=== PATIENT | female | born 1995 | race Two or more races ===

== ENCOUNTER 2016-09-30 22:31 | Emergency (ER) | payer OTHER ==
[2016-09-30 22:52] VITALS: BP 126/55; PULSE 65; TEMP 98.6; BMI 24.7
--- NOTE | 2016-10-01 00:30 | PDOC ---
History of Present Illness - General History Source: Patient Exam Limitations: No Limitations - History of Present Illness Initial Comments: 10/01/16 00:37 Patient is a 21 year old female with no significant past medical history who presents to the ED with left leg swelling s/p twisted ankle 4 days ago. Patient notes that she was stepping off the bed and her foot was asleep so she landed twisting it. She notes that the swelling got worse since 4 days ago. She reports that she was using prema wrap and advil for the pain with minimal relief. <Clara John - Last Filed: 10/01/16 00:37> - General History Source: Patient <Des Padilla - Last Filed: 10/01/16 00:49> - General Chief Complaint: Injury Stated Complaint: L LEG INJURY Time Seen by Provider: 10/01/16 00:29 Past History <Clara John - Last Filed: 10/01/16 00:37> - Past Medical History Other medical history: denies - Immunization History Immunization Up to Date: Yes - Psycho/Social/Smoking Cessation Hx Anxiety: No Suicidal Ideation: No Smoking History: Never smoked Hx Alcohol Use: No Drug/Substance Use Hx: No Substance Use Type: None <Des Padilla - Last Filed: 10/01/16 00:49> - Past Medical History Allergies/Adverse Reactions: Allergies Allergy/AdvReac Type Severity Reaction Status Date / Time No Known Allergies Allergy Verified 09/30/16 22:49 Home Medications: Ambulatory Orders NK [No Known Home Medication] 05/01/16 Review of Systems - Review of Systems Able to Perform ROS?: Yes Comments:: 10/01/16 00:37 CONSTITUTIONAL: Absent: fever, chills, diaphoresis, generalized weakness, malaise, loss of appetite HEENT: Absent: rhinorrhea, nasal congestion, throat pain, throat swelling, difficulty swallowing, mouth swelling, ear pain, eye pain, visual Changes CARDIOVASCULAR: Absent: chest pain, syncope, palpitations, irregular heart rate, lightheadedness , peripheral edema RESPIRATORY: Absent: cough, shortness of breath, dyspnea with exertion, orthopnea, wheezing, stridor, hemoptysis GASTROINTESTINAL: Absent: abdominal pain, abdominal distension, nausea, vomiting, diarrhea, constipation, melena, hematochezia GENITOURINARY: Absent: dysuria, frequency, urgency, hesitancy, hematuria, flank pain, genital pain MUSCULOSKELETAL: Present: left lower extremity swelling Absent: myalgia, arthralgia, joint swelling SKIN: Absent: rash, itching, pallor HEMATOLOGIC/IMMUNOLOGIC: Absent: easy bleeding, easy bruising, lymphadenopathy, frequent infections ENDOCRINE: Absent: unexplained weight gain, unexplained weight loss, heat intolerance, cold intolerance NEUROLOGIC: Absent: headache, focal weakness or paresthesias, dizziness, unsteady gait, seizure, mental status changes, bladder or bowel incontinence PSYCHIATRIC: Absent: anxiety, depression, suicidal or homicidal ideation, hallucinations. <Clara John - Last Filed: 10/01/16 00:37> *Physical Exam - Vital Signs Last Vital Signs Temp Pulse Resp BP Pulse Ox 98.6 F 65 18 126/55 98 09/30/16 22:50 09/30/16 22:50 09/30/16 22:50 09/30/16 22:50 09/30/16 22:50 - Physical Exam Comments: 10/01/16 00:38 GENERAL: Well developed, well nourished. Awake and alert. In no acute distress. HEENT: Normocephalic, atraumatic. PERRLA, EOMI. No conjunctival pallor. Sclerae are non -icteric. Moist mucous membranes. Oropharynx is clear. NECK: Supple. Full ROM. No JVD. Carotid pulses 2+ and symmetric, without bruits. No thyromegaly. No lymphadenopathy. CARDIOVASCULAR: Regular rate and rhythm. No murmurs, rubs, or gallops. Distal pulses are 2+ and symmetric. PULMONARY: No evidence of respiratory distress. Lungs clear to auscultation bilaterally. No wheezing, rales or rhonchi. ABDOMINAL: Soft. Non-tender. Non-distended. No rebound or guarding. No organomegaly. Normoactive bowel sounds. MUSCULOSKELETAL Normal range of motion at all joints. No bony deformities or tenderness. No CVA tenderness. EXTREMITIES: +Swelling and ecchymosis from ankle to knee. No bony deformity No cyanosis. No clubbing. No calf tenderness. SKIN: Warm and dry. Normal capillary refill. No rashes. No jaundice. NEUROLOGICAL: Alert, awake, appropriate. Cranial nerves 2-12 intact. No deficits to light touch and temperature in face, upper extremities and lower extremities. No motor deficits in the in face, upper extremities and lower extremities. Normoreflexic in the upper and lower extremities. Normal speech. PSYCHIATRIC: Cooperative. Good eye contact. Appropriate mood and affect. <Clara John - Last Filed: 10/01/16 00:37> - Vital Signs Last Vital Signs Temp Pulse Resp BP Pulse Ox 98.6 F 65 18 126/55 98 09/30/16 22:50 09/30/16 22:50 09/30/16 22:50 09/30/16 22:50 09/30/16 22:50 <Des Padilla - Last Filed: 10/01/16 00:49> ED Treatment Course - RADIOLOGY Radiology Studies Ordered: Category Date Time Status ANKLE & FOOT-LEFT* [RAD] Stat Radiology 09/30/16 23:50 Taken <Des Padilla - Last Filed: 10/01/16 00:49> Medical Decision Making - Medical Decision Making 10/01/16 00:32 Dr. Padilla: The scribe's documentation has been prepared under my direction and personally reviewed by me in its entirery. I confirm that the note above accurately reflects all work, treatment, procedures, and medical decision making performed by me. Pt with swelling and ecchymosis to left ankle/ foot s/p ankle sprain 4 days ago. Xray is negative for fx or dislocation. Pt will be discharge and follow up with ortho as needed <Des Padilla - Last Filed: 10/01/16 00:49> *DC/Admit/Observation/Transfer - Attestations Scribe Attestion: 10/01/16 00:38 Documentation prepared by GERMAN Bermeo, acting as medical hospital sales for Des Padilla DO. <Clara John - Last Filed: 10/01/16 00:37> - Discharge Dispostion Admit: No <Des Padilla - Last Filed: 10/01/16 00:49> Diagnosis at time of Disposition: Left ankle sprain Qualifiers: Encounter type: initial encounter Involved ligament of ankle: unspecified ligament Qualified Code(s): S93.402A - Sprain of unspecified ligament of left ankle, initial encounter - Discharge Dispostion Disposition: HOME Condition at time of disposition: Stable - Referrals Referrals: Rex Burns MD [Primary Care Provider] - Boni Ledesma MD [Staff Physician] - - Patient Instructions Printed Discharge Instructions: DI for Ankle Sprain Additional Instructions: Rest, ice, elevate foot as much as possible. Take Advil for pain as needed. Follow up with your doctor or the doctor provided as needed. - Post Discharge Activity Work/School Note: Back to Work
[2016-10-01] MEDS ORDERED: IBUPROFEN 600 MG TABLET (FP) PO ONE (00:54)
== END 2016-10-01 00:58 | disposition home or self-care (01) ==
LOC: JER 22:31
DX: S93.402A Sprain of unspecified ligament of left ankle, initial encounter (principal); X58.XXXA Exposure to other specified factors, initial encounter; Y93.9 Activity, unspecified; Y92.9 Unspecified place or not applicable
CPT/HCPCS: 73610-TC-LT; 73630-TC-LT; 99281-25

== ENCOUNTER 2017-07-01 23:48 | Emergency (ER) | payer OTHER ==
[2017-07-01 23:59] VITALS: BP 126/54; PULSE 64; TEMP 98.5; BMI 28.1
[2017-07-02] MEDS ORDERED: TETANUS AND DIPHTHERIA TOXOID 0.5 ML DISP.SYRIN IM ONE (00:22)
[2017-07-02] MEDS ORDERED: CEPHALEXIN MONOHYDRATE 500 MG CAPSULE (UD) PO ONE (00:22)
--- NOTE | 2017-07-02 00:22 | PDOC ---
History of Present Illness - General History Source: Patient <Des Padilla - Last Filed: 07/02/17 00:25> - History of Present Illness Initial Comments: 07/02/17 00:53 Patient is a 21 year old female with no significant past medical history who presents to the ED s/p finger laceration that occured 2 days ago. Patient reports injuring her left index finger 2 days go with a piece of glass accidentally causing immediate pain. She reports coming into the ED for evaluation of her laceration after her finger began to become more swollen with time. Denies fevers, chills. Denies nausea, vomiting. Denies contact with sick individuals. Denies any other symptoms. Allergies: None Social history: No smoking. No alcohol. No illicit drugs. Surgical history: None PMD: Dr. Carlton Shah. <Danilo Chamorro - Last Filed: 07/02/17 01:07> - General Chief Complaint: Injury Stated Complaint: FINGER INJURY Time Seen by Provider: 07/02/17 00:12 Past History - Past Medical History COPD: No - Immunization History Immunization Up to Date: Yes - Suicide/Smoking/Psychosocial Hx Smoking History: Never smoked Hx Alcohol Use: No Drug/Substance Use Hx: No Substance Use Type: None <ValerieDes - Last Filed: 07/02/17 00:25> <Danilo Chamorro - Last Filed: 07/02/17 01:07> - Past Medical History Allergies/Adverse Reactions: Allergies Allergy/AdvReac Type Severity Reaction Status Date / Time No Known Allergies Allergy Verified 07/01/17 23:57 Home Medications: Ambulatory Orders Cephalexin Monohydrate [Keflex -] 500 mg PO BID #20 capsule 07/02/17 Ibuprofen [Motrin] 600 mg PO TID #30 tablet 07/02/17 Review of Systems - Review of Systems Able to Perform ROS?: Yes Comments:: 07/02/17 00:53 CONSTITUTIONAL: Absent: fever, no chills, no fatigue EYES: Absent: visual changes ENT: Absent: ear pain, no sore throat CARDIOVASCULAR: Absent: chest pain, no palpitations RESPIRATORY: Absent: cough, no SOB GI: Absent: abdominal pain, no nausea, no vomiting, no constipation, no diarrhea GENITOURINARY: Absent: dysuria, no frequency, no hematuria MUSCULOSKELETAL: +Left index finger laceration. Absent: back pain, no arthralgia, no myalgia SKIN: Absent: rash All Other Systems: Reviewed and Negative <Danilo Chamorro - Last Filed: 07/02/17 01:07> *Physical Exam - Vital Signs Last Vital Signs Temp Pulse Resp BP Pulse Ox 98.5 F 64 16 126/54 99 07/01/17 23:57 07/01/17 23:57 07/01/17 23:57 07/01/17 23:57 07/01/17 23:57 <Des Padilla - Last Filed: 07/02/17 00:25> - Vital Signs Last Vital Signs Temp Pulse Resp BP Pulse Ox 98.5 F 64 16 126/54 99 07/01/17 23:57 07/01/17 23:57 07/01/17 23:57 07/01/17 23:57 07/01/17 23:57 - Physical Exam Comments: 07/02/17 00:54 GENERAL: Well-appearing, well-nourished. No apparent distress. HEENT: Normocephalic, atraumatic. PERRL, EOM intact. CARDIOVASCULAR: Normal S1, S2. Regular rate and rhythm. PULMONARY: Clear to auscultation bilaterally. ABDOMEN: Soft, non-distended, non-tender. EXTREMITIES: +Painfully swollen. +Laceration on bowel aspect of left index finger. +Tender at laceration site. +Cellulitic +Decreased ROM secondary to swelling. SKIN: Warm, dry. No rash NEUROLOGICAL: No focal neurological deficits. <Danilo Chamorro - Last Filed: 07/02/17 01:07> ED Treatment Course - Medications Given in the ED: ED Medications Discontinued Medications Generic Name Dose Route Start Last Admin Trade Name Freq PRN Reason Stop Dose Admin Cephalexin HCl 500 mg 07/02/17 00:22 07/02/17 00:27 Keflex - PO 07/02/17 00:23 500 mg ONCE ONE Administration Ibuprofen 600 mg 07/02/17 00:23 07/02/17 00:27 Motrin - PO 07/02/17 00:24 600 mg ONCE STA Administration Tetanus/Diphtheria Toxoids Adsorbed 0.5 ml 07/02/17 00:22 07/02/17 00:26 Decavac IM 07/02/17 00:23 0.5 ml .ONCE ONE Administration <Danilo Chamorro - Last Filed: 07/02/17 01:07> Medical Decision Making - Medical Decision Making 07/02/17 00:26 Dr. Padilla: The scribe's documentation has been prepared under my direction and personally reviewed by me in its entirery. I confirm that the note above accurately reflects all work, treatment, procedures, and medical decision making performed by me. <Des Padilla - Last Filed: 07/02/17 00:25> *DC/Admit/Observation/Transfer - Discharge Dispostion Admit: No <Des Padilla - Last Filed: 07/02/17 00:25> - Attestations Scribe Attestion: 07/02/17 00:54 Documentation prepared by Danilo Chamorro, acting as medical specialist for Des Padilla MD/DO. <Danilo Chamorro - Last Filed: 07/02/17 01:07> Diagnosis at time of Disposition: Wound infection - Discharge Dispostion Disposition: HOME Condition at time of disposition: Stable - Prescriptions Prescriptions: Cephalexin Monohydrate [Keflex -] 500 mg PO BID #20 capsule Ibuprofen [Motrin] 600 mg PO TID #30 tablet - Referrals Referrals: Carlton Shah MD, MD [Primary Care Provider] - - Patient Instructions Printed Discharge Instructions: DI for Wound Infection Additional Instructions: Take medication as directed. Keep wound clean and dry. Wash with soap and water. Return if symptoms don't improve. - Post Discharge Activity
[2017-07-02] MEDS ORDERED: IBUPROFEN 600 MG TABLET (FP) PO STA (00:23)
[2017-07-02] MEDS ORDERED: IBUPROFEN 600 MG TABLET (FP) PO ONE (00:28)
== END 2017-07-02 00:35 | disposition home or self-care (01) ==
LOC: JER 23:48
PROC: 3E0234Z Introduction of Serum, Toxoid and Vaccine into Muscle, Percutaneous Approach (ICD-10-PCS; principal; 2017-07-01)
DX: L08.9 Local infection of the skin and subcutaneous tissue, unspecified (principal)
CPT/HCPCS: 99281-25